=== PATIENT | female | born 1970 | race Caucasian/White ===

== ENCOUNTER 2020-02-07 11:46 | Inpatient (IN) | payer OTHER ==
--- NOTE | 2020-02-07 13:31 | BHS.RME ---
Substance Use & Tx History - Substance Use History Heroin Substance amount: 15 bags of heroin Frequency of use: Daily Substance route: Injection (ex: intravenous or skin popping) Date of Last Use: 02/07/20 Cocaine-Crack Substance amount: 80$ Frequency of use: Daily Substance route: Smoking Marijuana/Hashish Substance amount: 10$ Frequency of use: Daily Substance route: Smoking Date of Last Use: 02/06/20 - Last Treatment Date of last treatment: aci in 2019 Where was last treatment: Detox (2019) Physical/Psych/Mental Status - Behavior General Behavior: Increased activity (restlessness, agitation) Other Behaviors: Mannerisms - Cooperativeness Cooperativeness: Cooperative - Thinking Thought content: Future oriented - Physical Health Problems Is patient presently having any pain?: No Does patient presently have any injuries (include location): No Does patient currently have a fever: No COWS - Scale Resting Pulse: 0= [place] 80 or Below Sweatin= Chills/Flushing Restless Observation: 3= Extraneous Movement Pupil Size: 1= Pupils >than Normal Bone or Joint Aches: 2= Severe Diffuse Aches Runny Nose/ Eye Tearin= Runny Nose/Eyes GI Upset > 30mins: 2= Nausea/Diarrhea Tremor Observation: 2= Slight Tremor Visible Yawning Observation: 1= 1-2x During Session Anxiety or Irritability: 2=Irritable/Anxious Goose Flesh Skin: 0=Smooth Skin COWS Score: 16
--- NOTE | 2020-02-07 13:41 | HP ---
COWS - Scale Resting Pulse: 0= [place] 80 or Below Sweatin= Chills/Flushing Restless Observation: 3= Extraneous Movement Pupil Size: 1= Pupils >than Normal Bone or Joint Aches: 2= Severe Diffuse Aches Runny Nose/ Eye Tearin= Runny Nose/Eyes GI Upset > 30mins: 2= Nausea/Diarrhea Tremor Observation: 2= Slight Tremor Visible Yawning Observation: 1= 1-2x During Session Anxiety or Irritability: 2=Irritable/Anxious Goose Flesh Skin: 0=Smooth Skin COWS Score: 16 CIWA Score - Admission Criteria OASAS Guidelines: Admission for Medically Managed Detox: Requires at least one of the followin. CIWA greater than 12 2. Seizures within the past 24 hours 3. Delirium tremens within the past 24 hours 4. Hallucinations within the past 24 hours 5. Acute intervention needed for co occurring medical disorder 6. Acute intervention needed for co occurring psychiatric disorder 7. Severe withdrawal that cannot be handled at a lower level of care (continued vomiting, continued diarrhea, abnormal vital signs) requiring intravenous medication and/or fluids 8. Admitting History and Physical - Admission Chief Complaint: i need to stop using drugs History of Present Illness: this 49 years old female with heroin,cocaine and marijuana dependence,seeking detox,last detox aci in 2019 not completed History Source: Patient Limitations to Obtaining History: No Limitations - Past Medical History Hepatobiliary: Yes: Hepatitis C ...LMP: 11/01/18 ...: No Psych: Yes: Anxiety, Bipolar, Depression, Other - Smoking History Smoking history: Current every day smoker Have you smoked in the past 12 months: Yes Aproximately how many cigarettes per day: 20 - Alcohol/Substance Use Hx Alcohol Use: No History of Substance Use: reports: Cocaine, Heroin, Marijuana - Social History Usual Living Arrangement: Yes: With Significant Other Do you think of yourself as: Straight/Heterosexual ADL: Support Services Occupation: unemployed History of Recent Travel: No Other Social History: unemployed,nicotine dependence,no legal issue Admission ROS S - HPI Chief Complaint: i need help to stop using drugs Allergies/Adverse Reactions: Allergies Allergy/AdvReac Type Severity Reaction Status Date / Time No Known Allergies Allergy Verified 02/07/20 13:44 History of Present Illness: this 49 years old female with heroin,cocaine dependence seeking detox, first time to this facility, Exam Limitations: No Limitations - Ebola screening Have you traveled outside of the country in the last 21 days: No Have you had contact with anyone from an Ebola affected area: No Have you been sick,other than usual withdrawal symptoms: No Do you have a fever: No - Review of Systems Constitutional: Chills, Loss of Appetite, Malaise, Night Sweats, Changes in sleep, Weakness EENT: reports: Tearing, Nose Congestion Respiratory: reports: No Symptoms reported Cardiac: reports: No Symptoms Reported GI: reports: Nausea, Poor Appetite, Abdominal cramping : reports: No Symptoms Reported Musculoskeletal: reports: Back Pain, Muscle Pain Integumentary: reports: Dryness Neuro: reports: Tremors Endocrine: reports: No Symptoms Reported Hematology: reports: No Symptoms Reported Psychiatric: reports: No Sypmtoms Reported, Judgement Intact, Mood/Affect Appropiate, Orientated x3, Anxious, Depressed, other (bipolar,ptsd) Patient History - Patient Medical History Hx Anemia: No Hx Asthma: No Hx Chronic Obstructive Pulmonary Disease (COPD): No Hx Cancer: No Hx Cardiac Disorders: No Hx Congestive Heart Failure: No Hx Hypertension: No Hx Hypercholesterolemia: No Hx Pacemaker: No HX Cerebrovascular Accident: No Hx Seizures: No Hx Dementia: No Hx Diabetes: No Hx Gastrointestinal Disorders: No Hx Liver Disease: No Hx Genitourinary Disorders: No Hx Sexually Transmitted Disorders: No Hx Renal Disease (ESRD): No Hx Thyroid Disease: No Hx Human Immunodeficiency Virus (HIV): No (last 2018) Hx Hepatitis C: Yes Hx Depression: Yes Hx Suicide Attempt: Yes (last 3 years ago overdose) Hx Bipolar Disorder: Yes Hx Schizophrenia: Yes Other Medical History: no suicidal,no homicidal - Patient Surgical History Past Surgical History: No - Reproductive History Patient is a Female of Child Bearing Age (11 -55 yrs old): Yes Last Menstrual Period: 11/01/18 Patient : No - Smoking Cessation Smoking history: Current every day smoker Have you smoked in the past 12 months: Yes Aproximately how many cigarettes per day: 20 Cigars Per Day: 0 Hx Chewing Tobacco Use: No Initiated information on smoking cessation: Yes 'Breaking Loose' booklet given: 02/07/20 - Substance & Tx. History Hx Alcohol Use: No Hx Substance Use: Yes Substance Use Type: Cocaine, Heroin, Marijuana Hx Substance Use Treatment: Yes (aci 2019 not completed) - Substances abused Heroin Substance route: Injection Amount used: 15 Age of first use: 18 Date of last use: 02/06/20 Crack Substance route: Smoking Frequency: Daily Amount used: 80$ Age of first use: 40 Date of last use: 02/06/20 Marijuana/Hashish Substance route: Smoking Frequency: Daily Amount used: 20$ Age of first use: 17 Date of last use: 02/06/20 Admission Physical Exam [facility] - Vital Signs Vital Signs: t97.3,p67,bp97/74,r18 - Physical General Appearance: Yes: Moderate Distress, Tremorous, Irritable, Sweating, Anxious HEENTM: Yes: Normal ENT Inspection, SUSAN, Pharynx Normal Respiratory: Yes: Lungs Clear, Normal Breath Sounds, No Respiratory Distress Neck: Yes: Within Normal Limits, No masses,lesions,Nodules, Supple Breast: Yes: Breast Exam Deferred Cardiology: Yes: Within Normal Limits, Regular Rhythm, Regular Rate, S1, S2 Abdominal: Yes: Within Normal Limits, Normal Bowel Sounds, Non Tender, Soft Genitourinary: Yes: Within Normal Limits Back: Yes: Muscle Spasm Musculoskeletal: Yes: Back pain, Muscle Pain Extremities: Yes: Tremors Neurological: Yes: sport psychologist II-XII NML intact, Fully Oriented, Alert, Motor Strength 5/5 Integumentary: Yes: Dry, Track [place] Lymphatic: Yes: Within Normal Limits - Diagnostic (1) Opioid dependence with withdrawal Current Visit: Yes Status: Acute (2) Cocaine dependence Current Visit: Yes Status: Acute (3) Cannabis dependence Current Visit: Yes Status: Acute (4) IVDU (intravenous drug user) Current Visit: Yes Status: Acute (5) Bipolar disorder Current Visit: Yes Status: Acute (6) PTSD (post-traumatic stress disorder) Current Visit: Yes Status: Acute (7) Anxiety and depression Current Visit: Yes Status: Acute Cleared for Admission [facility] - Detox or Rehab [facility] Level of Care: Medically Managed Detox Regimen/Protocol: Methadone Inpatient Rehab Admission - Rehab Decision to Admit Inpatient rehab admission?: No
[2020-02-07] MEDS ORDERED: METHOCARBAMOL 500 MG TABLET PO PRN (13:57)
[2020-02-07] MEDS ORDERED: ACETAMINOPHEN 325 MG TABLET (FP) PO PRN ×2 (13:57)
[2020-02-07] MEDS ORDERED: MAG HYDROX/AL HYDROX/SIMETH 30 ML UNIT-DOSE CUP PO PRN (13:57)
[2020-02-07] MEDS ORDERED: ONDANSETRON *ODT* 4 MG TABLET SL ONE (13:57)
[2020-02-07] MEDS ORDERED: METHADONE HCL 10 MG TABLET (FOR DETOX USE ONLY) PO ONE (13:57)
[2020-02-07] MEDS ORDERED: MAGNESIUM CITRATE 300 ML BOTTLE PO PRN (13:57)
[2020-02-07] MEDS ORDERED: BISMUTH SUBSALICYLATE 524 MG/30 ML UD PO PRN (13:57)
[2020-02-07] MEDS ORDERED: NICOTINE POLACRILEX 2 MG GUM BUC PRN (13:57)
[2020-02-07] MEDS ORDERED: IBUPROFEN 400 MG TABLET (FP) PO PRN (13:57)
[2020-02-07] MEDS ORDERED: MAGNESIUM HYDROX 2400MG/30ML ORAL SUSPENSION 30 ML CUP PO PRN (13:57)
[2020-02-07] MEDS ORDERED: cloNIDine HCL 0.1 MG TABLET PO PRN (13:57)
[2020-02-07] MEDS ORDERED: MENTHOL/PHENOL 1 EACH UD MM PRN (13:57)
[2020-02-07] MEDS ORDERED: diazePAM 5 MG TABLET PO PRN (14:02)
[2020-02-07 14:59] VITALS: BMI 30.1
[2020-02-07] MEDS: hydrOXYzine PAMOATE 25 MG CAPSULE (FP) PO SCH ×2 (19:17→22:25)
[2020-02-07] MEDS: NICOTINE 21 MG/24 HOURS TOPICAL PATCH TD SCH (19:31)
[2020-02-07] MEDS: MELATONIN 5 MG TABLETS PO SCH (22:25)
[2020-02-07] MEDS: THIAMINE HCL 100 MG TABLET (FP) PO SCH (22:25)
[2020-02-08] MEDS: hydrOXYzine PAMOATE 25 MG CAPSULE (FP) PO SCH ×5 (07:13→22:41)
--- NOTE | 2020-02-08 09:29 | EKG ---
Test Reason : Blood Pressure : / mmHG Vent. Rate : 064 BPM Atrial Rate : 064 BPM P-R Int : 158 ms QRS Dur : 082 ms QT Int : 482 ms P-R-T Axes : 050 058 046 degrees QTc Int : 497 ms NORMAL SINUS RHYTHM WITH SINUS ARRHYTHMIA PROLONGED QT ABNORMAL ECG NO PREVIOUS ECGS AVAILABLE Confirmed by Abe Meyers ([id number]) on 02/08/2020 9:29:23 AM Referred By: Confirmed By:Abe Meyers
[2020-02-08] MEDS ORDERED: METHADONE HCL 10 MG TABLET (FOR DETOX USE ONLY) ONE (09:35)
[2020-02-08] MEDS ORDERED: METHADONE HCL 5 MG TABLET (FOR DETOX USE ONLY) ONE (09:36)
[2020-02-08] MEDS ORDERED: METHADONE (DETOX) 20 MG, METHADONE (DETOX) 5 MG PO ONE (10:00)
[2020-02-08 10:17] LABS: HEMATOCRIT 41.1 % (32.4-45.2); HEMOGLOBIN 13.2 GM/dL (10.7-15.3); MCH 27.3 pg (25.7-33.7); MEAN CELL VOLUME 85.2 fl (80-96); MEAN PLT VOLUME 9.1 fl (7.5-11.1); PLATELET COUNT 246 K/MM3 (134-434); RBC 4.83 M/mm3 (3.60-5.2); RDW 14.9 % (11.6-15.6)
[2020-02-08] MEDS: PRENATAL VITAMINS W/ FOLIC ACID TABLET (FP) PO SCH (10:27)
[2020-02-08] MEDS: NICOTINE 21 MG/24 HOURS TOPICAL PATCH TD SCH (10:27)
[2020-02-08 10:35] LABS: ALBUMIN 3.1 g/dl (3.4-5.0); BLOOD UREA NITROGEN 13.6 mg/dL (7-18); CALCIUM 9.1 mg/dL (8.5-10.1); CREATININE 0.9 mg/dL (0.55-1.3); POTASSIUM 4.4 mmol/L (3.5-5.1); TOT PROT 7.7 g/dl (6.4-8.2)
[2020-02-08] MEDS ORDERED: PNEUMOC 13-VAL CONJ-DIP CRM/PF 0.5 ML DISP.SYRIN IM ONE (12:00)
--- NOTE | 2020-02-08 12:01 | PN ---
BHS COWS - Scale Resting Pulse: 0= [place] 80 or Below Sweatin= Chills/Flushing Restless Observation: 0= Sits Still Pupil Size: 1= Pupils >than Normal Bone or Joint Aches: 1= Mild Discomfort Runny Nose/ Eye Tearin= None GI Upset > 30mins: 2= Nausea/Diarrhea Tremor Observation of Outstretched Hands: 1= Tremor [place], Not Seen Yawning Observation: 0= None Anxiety or Irritability: 2=Irritable/Anxious Goose Flesh Skin: 3=Piloerection COWS Score: 11 BHS Progress Note (SOAP) Subjective: 49 years old female admitted on 02/07/20 for opiate withdrawal sx management treating with methadone detox regiment ate breakfast resting in bed reports feeling tired prefers to resting in bed today limited conversation with staff Objective: 02/08/20 12:01 Vital Signs - 24 hr 02/07/20 02/07/20 02/07/20 14:33 16:26 21:03 Temperature 97.2 F L 97.3 F L 97.1 F L Pulse Rate 74 67 91 H Respiratory 18 18 18 Rate Blood Pressure 102/73 97/74 95/65 O2 Sat by Pulse 98 Oximetry (%) 02/08/20 02/08/20 06:56 08:37 Temperature 97.8 F 97.5 F L Pulse Rate 51 L 55 L Respiratory 18 16 Rate Blood Pressure 113/72 124/77 O2 Sat by Pulse 95 Oximetry (%) Laboratory Tests 02/07/20 02/07/20 02/08/20 14:23 15:17 08:15 WBC 5.0 RBC 4.83 Hgb 13.2 Hct 41.1 MCV 85.2 MCH 27.3 MCHC 32.0 RDW 14.9 Plt Count 246 MPV 9.1 Sodium Potassium Chloride Carbon Dioxide Anion Gap BUN Creatinine Est GFR (CKD-EPI)AfAm Est GFR (CKD-EPI)NonAf POC Glucometer 127 Random Glucose Calcium Total Bilirubin AST ALT Alkaline Phosphatase Total Protein Albumin POC Urine HCG, Qual Negative 02/08/20 08:15 WBC RBC Hgb Hct MCV MCH MCHC RDW Plt Count MPV Sodium 140 Potassium 4.4 Chloride 108 H Carbon Dioxide 29 Anion Gap 3 L BUN 13.6 Creatinine 0.9 Est GFR (CKD-EPI)AfAm 87.02 Est GFR (CKD-EPI)NonAf 75.08 POC Glucometer Random Glucose 108 H Calcium 9.1 Total Bilirubin 1.0 AST 20 ALT 14 Alkaline Phosphatase 127 H Total Protein 7.7 Albumin 3.1 L POC Urine HCG, Qual lab noted Assessment: 02/08/20 12:02 opiate withdrawal Plan: methadone regiment
[2020-02-08] MEDS ORDERED: PENICILLIN G BENZATHINE 2,400,000 UNIT/4 ML PFS IM ONE (16:00)
[2020-02-08] MEDS: MELATONIN 5 MG TABLETS PO SCH (22:41)
[2020-02-08] MEDS: THIAMINE HCL 100 MG TABLET (FP) PO SCH (22:41)
[2020-02-09] MEDS: hydrOXYzine PAMOATE 25 MG CAPSULE (FP) PO SCH ×5 (05:53→23:07)
[2020-02-09] MEDS ORDERED: METHADONE HCL 10 MG TABLET (FOR DETOX USE ONLY) PO ONE (10:00)
[2020-02-09] MEDS: NICOTINE 21 MG/24 HOURS TOPICAL PATCH TD SCH (10:41)
[2020-02-09] MEDS: PRENATAL VITAMINS W/ FOLIC ACID TABLET (FP) PO SCH (10:41)
--- NOTE | 2020-02-09 11:29 | PN ---
BHS COWS - Scale Resting Pulse: 0= [place] 80 or Below Sweatin= Chills/Flushing Restless Observation: 0= Sits Still Pupil Size: 1= Pupils >than Normal Bone or Joint Aches: 1= Mild Discomfort Runny Nose/ Eye Tearin= None GI Upset > 30mins: 1= Stomach Cramp Tremor Observation of Outstretched Hands: 2= Slight Tremor Visible Yawning Observation: 0= None Anxiety or Irritability: 2=Irritable/Anxious Goose Flesh Skin: 0=Smooth Skin COWS Score: 8 BHS Progress Note (SOAP) Subjective: 49 years old female admitted on 02/07/20 for opiate withdrawal sx management treating with methadone detox regiment Vital Signs - 24 hr 02/08/20 02/08/20 02/08/20 12:51 16:52 20:54 Temperature 97.3 F L 97.8 F 97.5 F L Pulse Rate 64 45 L 55 L Respiratory 18 16 18 Rate Blood Pressure 134/87 126/71 147/77 O2 Sat by Pulse 99 97 Oximetry (%) 02/09/20 02/09/20 02/09/20 06:29 07:33 08:58 Temperature 98.2 F 97.7 F Pulse Rate 51 L 57 L 51 L Respiratory 16 18 18 Rate Blood Pressure 167/96 156/98 145/84 O2 Sat by Pulse 96 Oximetry (%) bp elevation amlodipine 10 mg po initiated Objective: 02/09/20 11:30 Laboratory Tests 02/07/20 02/07/20 02/08/20 14:23 15:17 08:15 WBC RBC Hgb Hct MCV MCH MCHC RDW Plt Count MPV Sodium Potassium Chloride Carbon Dioxide Anion Gap BUN Creatinine Est GFR (CKD-EPI)AfAm Est GFR (CKD-EPI)NonAf POC Glucometer 127 Random Glucose Calcium Total Bilirubin AST ALT Alkaline Phosphatase Total Protein Albumin POC Urine HCG, Qual Negative Syphilis Serology Reactive A* RPR Titer HIV Ag/Ab Combo Qual 02/08/20 02/08/20 02/08/20 08:15 08:15 08:15 WBC 5.0 RBC 4.83 Hgb 13.2 Hct 41.1 MCV 85.2 MCH 27.3 MCHC 32.0 RDW 14.9 Plt Count 246 MPV 9.1 Sodium 140 Potassium 4.4 Chloride 108 H Carbon Dioxide 29 Anion Gap 3 L BUN 13.6 Creatinine 0.9 Est GFR (CKD-EPI)AfAm 87.02 Est GFR (CKD-EPI)NonAf 75.08 POC Glucometer Random Glucose 108 H Calcium 9.1 Total Bilirubin 1.0 AST 20 ALT 14 Alkaline Phosphatase 127 H Total Protein 7.7 Albumin 3.1 L POC Urine HCG, Qual Syphilis Serology RPR Titer HIV Ag/Ab Combo Qual Negative 02/08/20 08:15 WBC RBC Hgb Hct MCV MCH MCHC RDW Plt Count MPV Sodium Potassium Chloride Carbon Dioxide Anion Gap BUN Creatinine Est GFR (CKD-EPI)AfAm Est GFR (CKD-EPI)NonAf POC Glucometer Random Glucose Calcium Total Bilirubin AST ALT Alkaline Phosphatase Total Protein Albumin POC Urine HCG, Qual Syphilis Serology RPR Titer Reactive 1:32 H HIV Ag/Ab Combo Qual denies history of syphilis reactive no history of treatment recorded received first penicillin IM G on 02/08/20 ms otto agrees to have second IM around 27 and third IM around 02/22/20 02/09/20 11:33 Assessment: 02/09/20 11:34 opiate withdrawal 02/09/20 11:34 hypertension Plan: methadone regiment amlodipine 10 mg po
[2020-02-09] MEDS: amLODIPine BESYLATE 10 MG TABLET (FP) PO SCH (11:35)
[2020-02-09] MEDS: MELATONIN 5 MG TABLETS PO SCH (23:07)
[2020-02-09] MEDS: THIAMINE HCL 100 MG TABLET (FP) PO SCH (23:08)
[2020-02-10] MEDS: hydrOXYzine PAMOATE 25 MG CAPSULE (FP) PO SCH ×5 (05:55→22:34)
[2020-02-10] MEDS ORDERED: METHADONE HCL 10 MG TABLET (FOR DETOX USE ONLY) ONE (08:45)
[2020-02-10] MEDS ORDERED: METHADONE HCL 5 MG TABLET (FOR DETOX USE ONLY) ONE (08:45)
--- NOTE | 2020-02-10 09:40 | PN ---
BHS COWS - Scale Resting Pulse: 0= [place] 80 or Below Sweatin= Chills/Flushing Restless Observation: 0= Sits Still Pupil Size: 1= Pupils >than Normal Bone or Joint Aches: 1= Mild Discomfort Runny Nose/ Eye Tearin= Nasal Congestion GI Upset > 30mins: 1= Stomach Cramp Tremor Observation of Outstretched Hands: 1= Tremor [place], Not Seen Yawning Observation: 0= None Anxiety or Irritability: 1=Feels Anxious/Irritable Goose Flesh Skin: 0=Smooth Skin COWS Score: 7 BHS Progress Note (SOAP) Subjective: 49 years old female admitted on 02/07/20 for opiate withdrawal sx management treating with methadone detox regiment feeling chill and sweating Vital Signs - 24 hr 02/09/20 02/09/20 02/09/20 12:43 16:57 20:57 Temperature 97.7 F 98.9 F 97.7 F Pulse Rate 62 77 61 Respiratory 18 16 16 Rate Blood Pressure 135/80 135/97 139/79 O2 Sat by Pulse 100 100 100 Oximetry (%) 02/10/20 02/10/20 06:18 08:49 Temperature 97.9 F 97.3 F L Pulse Rate 66 81 Respiratory 16 16 Rate Blood Pressure 131/88 113/71 O2 Sat by Pulse 99 Oximetry (%) mr otto seems doing well with amlodipine 10 mg po daily Objective: 02/10/20 09:41 Laboratory Tests 02/07/20 02/07/20 02/07/20 14:23 14:40 15:17 WBC RBC Hgb Hct MCV MCH MCHC RDW Plt Count MPV Sodium Potassium Chloride Carbon Dioxide Anion Gap BUN Creatinine Est GFR (CKD-EPI)AfAm Est GFR (CKD-EPI)NonAf POC Glucometer 127 Random Glucose Calcium Total Bilirubin AST ALT Alkaline Phosphatase Total Protein Albumin POC Urine HCG, Qual Negative Syphilis Serology RPR Titer COVID-19 ([facility]) Not detected HIV Ag/Ab Combo Qual 02/08/20 02/08/20 02/08/20 08:15 08:15 08:15 WBC 5.0 RBC 4.83 Hgb 13.2 Hct 41.1 MCV 85.2 MCH 27.3 MCHC 32.0 RDW 14.9 Plt Count 246 MPV 9.1 Sodium Potassium Chloride Carbon Dioxide Anion Gap BUN Creatinine Est GFR (CKD-EPI)AfAm Est GFR (CKD-EPI)NonAf POC Glucometer Random Glucose Calcium Total Bilirubin AST ALT Alkaline Phosphatase Total Protein Albumin POC Urine HCG, Qual Syphilis Serology Reactive A* RPR Titer COVID-19 ([facility]) HIV Ag/Ab Combo Qual Negative 02/08/20 02/08/20 08:15 08:15 WBC RBC Hgb Hct MCV MCH MCHC RDW Plt Count MPV Sodium 140 Potassium 4.4 Chloride 108 H Carbon Dioxide 29 Anion Gap 3 L BUN 13.6 Creatinine 0.9 Est GFR (CKD-EPI)AfAm 87.02 Est GFR (CKD-EPI)NonAf 75.08 POC Glucometer Random Glucose 108 H Calcium 9.1 Total Bilirubin 1.0 AST 20 ALT 14 Alkaline Phosphatase 127 H Total Protein 7.7 Albumin 3.1 L POC Urine HCG, Qual Syphilis Serology RPR Titer Reactive 1:32 H COVID-19 ([facility]) HIV Ag/Ab Combo Qual penicilline G IM for syphilis x 1 mr otto agrees to receive second and third penicilline IM a week apart Assessment: 02/10/20 09:42 opiate withdrawal Plan: methadone regiment
[2020-02-10] MEDS ORDERED: METHADONE (DETOX) 10 MG, METHADONE (DETOX) 5 MG PO ONE (10:00)
[2020-02-10] MEDS: amLODIPine BESYLATE 10 MG TABLET (FP) PO SCH (10:30)
[2020-02-10] MEDS: NICOTINE 21 MG/24 HOURS TOPICAL PATCH TD SCH (10:31)
[2020-02-10] MEDS: PRENATAL VITAMINS W/ FOLIC ACID TABLET (FP) PO SCH (10:32)
--- NOTE | 2020-02-10 11:55 | CONSULT ---
[facility] Psychiatric Consult - Data Date of interview: 02/10/20 Admission source: [facility] Identifying data: First visit to [facility] and admission to [address] [place] [address] for this 49 y/o [place] female self-referred for detoxification treatment. GRANT issues : heroin, cannabis, cocaine, nicotine. Patient is single, mother of three, homeless, unemployed and supported on Public Assistance. Substance Abuse History: Discussed with the patient. GRANT profile as follows ; Smoking history: Current every day smoker. Have you smoked in the past 12 months: Yes. Aproximately how many cigarettes per day: 20. Cigars Per Day: 0. Hx Chewing Tobacco Use: No. Initiated information on smoking cessation: Yes. 'Breaking Loose' booklet given: 02/07/20. - Substance & Tx. History. Hx Alcohol Use: No. Hx Substance Use: Yes. Substance Use Type: Cocaine, Heroin, Marijuana. Hx Substance Use Treatment: Yes (aci 2019 not completed). - Substances abused. Heroin. Substance route: Injection. Amount used: 15. Age of first use: 18. Date of last use: 02/06/20. Crack. Substance route: Smoking. Frequency: Daily. Amount used: 80$. Age of first use: 40. Date of last use: 02/06/20. Marijuana/Hashish. Substance route: Smoking. Frequency: Daily. Amount used: 20$. Age of first use: 17. Date of last use: 02/06/20 Medical History: Medical history is remarkable for hepatitis C, obesity and diabetes mellitus. Psychiatric History: Patient endorses a history of multiple psychiatric hospitalizations (mostly at institutions in [facility]). In the [facility], she is known to only [facility] [place]. Ms Newsome reports multiple diagnoses : Bipolar Disorder, Anxiety Disorder. She states that she gets her OPD psychiatric care at the [facility] in the [place]. Medicated (reportedly) with celexa 20 mg/day + xanax (dose not recalled) + gabapentin 100 mg/tid + buspar (dose not recalled) + zolpidem (unknown dose). Pattern of adherence remains questionable. Last psychiatric hospitalization : 2006 (circumstance of admission : suicide attempt via wrist- cutting). Physical/Sexual Abuse/Trauma History: Patient denies history of abuse. Stressors : of biological mother two months ago, homelessness, poverty, chronic unemployment, addictions and continous rapport with substance abusers circles. Additional Comment: No toxicology for review. Mental Status Exam - Mental Status Exam Alert and Oriented to: Time, Place, Person Cognitive Function: Good Patient Appearance: Well Groomed Mood: Withdrawn Affect: Appropriate, Mood Congruent Patient Behavior: Fatigued, Appropriate, Cooperative Speech Pattern: Clear, Appropriate Voice Loudness: Normal Thought Process: Intact, Goal Oriented Thought Disorder: Not Present Hallucinations: Denies Suicidal Ideation: Denies Homicidal Ideation: Denies Insight/Judgement: Fair (as evidenced by patient's comment that she " needs to stay away from drugs to better my life and get my children's respect" ) Sleep: Well Appetite: Good Gait/Station: Other (unsteady gait) Psychiatric Findings - Problem List ([place] 1, 2,3) (1) Opioid dependence with withdrawal Current Visit: Yes Status: Acute (2) Cannabis dependence Current Visit: Yes Status: Chronic (3) Cocaine dependence Current Visit: Yes Status: Chronic (4) Nicotine dependence Current Visit: Yes Status: Chronic (5) Bereavement Current Visit: Yes Status: Chronic (6) Substance induced mood disorder Current Visit: Yes Status: Chronic (7) Insomnia Current Visit: Yes Status: Chronic (8) History of anxiety disorder Current Visit: Yes Status: Chronic (9) History of depression Current Visit: Yes Status: Chronic Comment: Patient reports that she gets prescribed citalopram from OPD providers. - Initial Treatment Plan Initial Treatment Plan: Reassurance, empathy and support provided to the patient. Psychoeducation. Sleep hygiene. Detoxification in progress. Motivational counseling. Stable mental status. Patient is NOT suicidal or homicidal. She is grieving the loss of a loved one (biological mother). She is future-oriented as evidenced with her consent to pursue rehabilitation treatment (long-term) at any facility where bed is available. Patient is receptive to supportive therapy. Ms Newsome is NOT a danger to self or others at time of this examination. She DOES NOT need to be under constant observation or q 15 minute observation. Recommend downgrading watch to close observation. No medications other than detoxification protocol (patient has been off psychotropic medications for more than five months, as per self-report). This patient is a good candidate for transfer to [facility] for contnuity of care. Observation.
[2020-02-10] MEDS: MELATONIN 5 MG TABLETS PO SCH (22:34)
[2020-02-10] MEDS: THIAMINE HCL 100 MG TABLET (FP) PO SCH (22:34)
[2020-02-11] MEDS: hydrOXYzine PAMOATE 25 MG CAPSULE (FP) PO SCH ×5 (06:59→23:15)
--- NOTE | 2020-02-11 09:12 | PN ---
BHS COWS - Scale Resting Pulse: 0= [place] 80 or Below Sweatin= No chills or Flushing Restless Observation: 0= Sits Still Pupil Size: 0= Normal to Room Light Bone or Joint Aches: 1= Mild Discomfort Runny Nose/ Eye Tearin= None GI Upset > 30mins: 1= Stomach Cramp Tremor Observation of Outstretched Hands: 1= Tremor [place], Not Seen Yawning Observation: 0= None Anxiety or Irritability: 2=Irritable/Anxious Goose Flesh Skin: 0=Smooth Skin COWS Score: 5 BHS Progress Note (SOAP) Subjective: 49 years old female admitted on 02/07/20 for opiate withdrawal sx management treating with methadone detox regiment feeling better today less general body aches mild restlessness seen by psychiatrist for grieving discontinue 15minutes close observation no medical intervention at this time discussing medication assisted treatment program for behavior and psychosocial therapies encourage picking up narcan from pharmacy upon discharge from detox ms otto prefers to go to [facility] for opiate recovery and treatment for syphilis Objective: 02/11/20 09:20 Vital Signs - 24 hr 02/10/20 02/10/20 02/10/20 12:36 21:02 22:35 Temperature 97.5 F L 97.5 F L Pulse Rate 81 92 H 92 H Respiratory 18 18 18 Rate Blood Pressure 100/69 106/76 O2 Sat by Pulse 99 100 Oximetry (%) 02/11/20 02/11/20 06:18 07:33 Temperature 97.5 F L Pulse Rate 62 Respiratory 18 Rate Blood Pressure 98/64 O2 Sat by Pulse 98 98 Oximetry (%) Laboratory Tests 02/07/20 02/07/20 02/07/20 14:23 14:40 15:17 WBC RBC Hgb Hct MCV MCH MCHC RDW Plt Count MPV Sodium Potassium Chloride Carbon Dioxide Anion Gap BUN Creatinine Est GFR (CKD-EPI)AfAm Est GFR (CKD-EPI)NonAf POC Glucometer 127 Random Glucose Calcium Total Bilirubin AST ALT Alkaline Phosphatase Total Protein Albumin POC Urine HCG, Qual Negative Syphilis Serology RPR Titer COVID-19 ([facility]) Not detected HIV Ag/Ab Combo Qual 02/08/20 02/08/20 02/08/20 08:15 08:15 08:15 WBC 5.0 RBC 4.83 Hgb 13.2 Hct 41.1 MCV 85.2 MCH 27.3 MCHC 32.0 RDW 14.9 Plt Count 246 MPV 9.1 Sodium Potassium Chloride Carbon Dioxide Anion Gap BUN Creatinine Est GFR (CKD-EPI)AfAm Est GFR (CKD-EPI)NonAf POC Glucometer Random Glucose Calcium Total Bilirubin AST ALT Alkaline Phosphatase Total Protein Albumin POC Urine HCG, Qual Syphilis Serology Reactive A* RPR Titer COVID-19 ([facility]) HIV Ag/Ab Combo Qual Negative 02/08/20 02/08/20 08:15 08:15 WBC RBC Hgb Hct MCV MCH MCHC RDW Plt Count MPV Sodium 140 Potassium 4.4 Chloride 108 H Carbon Dioxide 29 Anion Gap 3 L BUN 13.6 Creatinine 0.9 Est GFR (CKD-EPI)AfAm 87.02 Est GFR (CKD-EPI)NonAf 75.08 POC Glucometer Random Glucose 108 H Calcium 9.1 Total Bilirubin 1.0 AST 20 ALT 14 Alkaline Phosphatase 127 H Total Protein 7.7 Albumin 3.1 L POC Urine HCG, Qual Syphilis Serology RPR Titer Reactive 1:32 H COVID-19 ([facility]) HIV Ag/Ab Combo Qual Assessment: 02/11/20 09:21 opiate withdrawal Plan: methadone regiment
[2020-02-11] MEDS: amLODIPine BESYLATE 10 MG TABLET (FP) PO SCH (09:43)
[2020-02-11] MEDS: PRENATAL VITAMINS W/ FOLIC ACID TABLET (FP) PO SCH (09:44)
[2020-02-11] MEDS: NICOTINE 21 MG/24 HOURS TOPICAL PATCH TD SCH (09:44)
[2020-02-11] MEDS ORDERED: METHADONE HCL 10 MG TABLET (FOR DETOX USE ONLY) PO ONE (10:00)
[2020-02-11] MEDS: MELATONIN 5 MG TABLETS PO SCH (23:15)
[2020-02-11] MEDS: THIAMINE HCL 100 MG TABLET (FP) PO SCH (23:15)
[2020-02-12] MEDS ORDERED: METHADONE HCL 5 MG TABLET (FOR DETOX USE ONLY) PO ONE (06:00)
[2020-02-12] MEDS: hydrOXYzine PAMOATE 25 MG CAPSULE (FP) PO SCH ×2 (06:10→10:37)
[2020-02-12 06:32] VITALS: TEMP 98.4
--- NOTE | 2020-02-12 08:20 | DS ---
[facility] Detox Discharge Summary Admission Date: 02/07/20 Discharge Date: 02/12/20 - History Present History: Opioid Dependence - Physical Exam Results Vital Signs: Vital Signs Temperature 98.4 F 02/12/20 05:57 Pulse Rate 62 02/12/20 05:57 Respiratory Rate 18 02/12/20 05:57 Blood Pressure 110/77 02/12/20 05:57 O2 Sat by Pulse Oximetry (%) 98 02/12/20 05:57 Pertinent Admission Physical Exam Findings: PE Gnl: WDWN, in no distress MS: nl mentation Motor: moves all limbs well Gait: steady Laboratory Tests 02/07/20 02/07/20 02/07/20 14:23 14:40 15:17 WBC RBC Hgb Hct MCV MCH MCHC RDW Plt Count MPV Sodium Potassium Chloride Carbon Dioxide Anion Gap BUN Creatinine Est GFR (CKD-EPI)AfAm Est GFR (CKD-EPI)NonAf POC Glucometer 127 Random Glucose Calcium Total Bilirubin AST ALT Alkaline Phosphatase Total Protein Albumin POC Urine HCG, Qual Negative Syphilis Serology RPR Titer COVID-19 (ALAINA) Not detected HIV Ag/Ab Combo Qual 02/08/20 02/08/20 02/08/20 08:15 08:15 08:15 WBC 5.0 RBC 4.83 Hgb 13.2 Hct 41.1 MCV 85.2 MCH 27.3 MCHC 32.0 RDW 14.9 Plt Count 246 MPV 9.1 Sodium Potassium Chloride Carbon Dioxide Anion Gap BUN Creatinine Est GFR (CKD-EPI)AfAm Est GFR (CKD-EPI)NonAf POC Glucometer Random Glucose Calcium Total Bilirubin AST ALT Alkaline Phosphatase Total Protein Albumin POC Urine HCG, Qual Syphilis Serology Reactive A* RPR Titer COVID-19 (ALAINA) HIV Ag/Ab Combo Qual Negative 02/08/20 02/08/20 08:15 08:15 WBC RBC Hgb Hct MCV MCH MCHC RDW Plt Count MPV Sodium 140 Potassium 4.4 Chloride 108 H Carbon Dioxide 29 Anion Gap 3 L BUN 13.6 Creatinine 0.9 Est GFR (CKD-EPI)AfAm 87.02 Est GFR (CKD-EPI)NonAf 75.08 POC Glucometer Random Glucose 108 H Calcium 9.1 Total Bilirubin 1.0 AST 20 ALT 14 Alkaline Phosphatase 127 H Total Protein 7.7 Albumin 3.1 L POC Urine HCG, Qual Syphilis Serology RPR Titer Reactive 1:32 H COVID-19 (ALAINA) HIV Ag/Ab Combo Qual Active Medications Generic Name Dose Route Start Last Admin Trade Name Freq PRN Reason Stop Dose Admin Acetaminophen 650 mg 02/07/20 13:57 Tylenol - PO Q6H PRN PAIN LEVEL 4 - 6 Acetaminophen 650 mg 02/07/20 13:57 Tylenol - PO Q6H PRN FEVER Al Hydroxide/Mg Hydroxide 30 ml 02/07/20 13:57 Mylanta Oral Suspension - PO Q6H PRN DYSPEPSIA Amlodipine Besylate 10 mg 02/09/20 11:15 02/11/20 09:43 Norvasc - PO 10 mg DAILY QUEENIE Administration Bismuth Subsalicylate 524 mg 02/07/20 13:57 Pepto-Bismol - PO Q1H PRN DIARRHEA Eucalyptus/Menthol/Phenol/Sorbitol 1 each 02/07/20 13:57 Cepastat Lozenge - MM 02/13/20 13:58 Q4H PRN SORE THROAT Hydroxyzine Pamoate 25 mg 02/07/20 14:00 02/12/20 06:10 Vistaril - PO 02/13/20 13:57 25 mg Q4HWA QUEENIE Administration Ibuprofen 400 mg 02/07/20 13:57 02/10/20 10:32 Motrin - PO 400 mg Q6H PRN Administration PAIN LEVEL 1 - 3 Magnesium Citrate 300 ml 02/07/20 13:57 Citroma - PO Q48H PRN CONSTIPATION Magnesium Hydroxide 30 ml 02/07/20 13:57 Milk Of Magnesia - PO PRN PRN CONSTIPATION Melatonin 5 mg 02/07/20 22:00 02/11/20 23:15 Melatonin PO Not Given HS QUEENIE Methocarbamol 500 mg 02/07/20 13:57 Robaxin - PO 02/13/20 13:58 Q6H PRN MUSCLE SPASMS Nicotine 21 mg 02/07/20 14:00 02/11/20 09:44 Nicoderm Patch - TD Not Given DAILY QUEENIE Nicotine Polacrilex 2 mg 02/07/20 13:57 Nicorette Gum - BUC Q2H PRN NICOTINE REPLACEMENT RX Multivit/Folic Acid/Iron 1 tab 02/08/20 10:00 02/11/20 09:44 Vitamins (Sjr) - PO 1 tab DAILY QUEENIE Administration Thiamine HCl 100 mg 02/07/20 22:00 02/11/20 23:15 Vitamin B1 - PO Not Given HS QUEENIE Vital Signs Period Temp Pulse Resp BP Sys/Sosa Pulse Ox Last 24 Hr 97.1 F-98.6 F 57-97 16-18 85-110/65-77 98-100 1. Opioid withdrawal, tx with methadone taper 2. Syphilis serology positive, penicilline G IM for syphilis x 1 given per notes: mr otto agrees to receive second and third penicilline IM a week apart - Treatment Hospital Course: Detox Protocol Followed, Detoxed Safely, Responded well, Discharged Condition Good, Rehab Referral Accepted Patient has Accepted a Rehab Referral to: [facility] or [facility] - Medication Discharge Medications: Ambulatory Orders Naloxone HCl [Narcan] 4 mg NS ASDIR PRN #1 spray 02/11/20 - AMA Did Patient Leave Against Medical Advice: No
[2020-02-12 10:12] VITALS: BP 93/63; PULSE 92
[2020-02-12] MEDS: amLODIPine BESYLATE 10 MG TABLET (FP) PO SCH (10:37)
[2020-02-12] MEDS: NICOTINE 21 MG/24 HOURS TOPICAL PATCH TD SCH (10:37)
[2020-02-12] MEDS: PRENATAL VITAMINS W/ FOLIC ACID TABLET (FP) PO SCH (10:37)
--- NOTE | 2020-02-15 12:37 | PN ---
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
== END 2020-02-12 12:06 | disposition home or self-care (01) | DRG 773 ==
LOC: YASAS 11:46 → Y3N 14:36
PROVIDERS: ADMIT Allergy & Immunology; ATTEND Allergy & Immunology
PROC: HZ2ZZZZ Detoxification Services for Substance Abuse Treatment (ICD-10-PCS; principal; 2020-02-07)
DX: F11.23 Opioid dependence with withdrawal (principal); F14.20 Cocaine dependence, uncomplicated; F12.20 Cannabis dependence, uncomplicated; F17.210 Nicotine dependence, cigarettes, uncomplicated; F19.24 Other psychoactive substance dependence with psychoactive substance-induced mood disorder; F31.9 Bipolar disorder, unspecified; F20.9 Schizophrenia, unspecified; F41.8 Other specified anxiety disorders; F43.10 Post-traumatic stress disorder, unspecified; A53.0 Latent syphilis, unspecified as early or late; I10 Essential (primary) hypertension; E11.9 Type 2 diabetes mellitus without complications; G47.00 Insomnia, unspecified; B18.2 Chronic viral hepatitis C; E66.9 Obesity, unspecified; Z68.30 Body mass index [BMI] 30.0-30.9, adult; Z20.2 Contact with and (suspected) exposure to infections with a predominantly sexual mode of transmission; Z56.0 Unemployment, unspecified; Z59.0 Homelessness
CPT/HCPCS: 36415; 80053; 81025; 82962; 85027; 86593; 86780; 87389; 93005; 93010; Q0162; U0003